=== PATIENT | female | born 1935 | race Caucasian/White ===

== ENCOUNTER 2025-08-14 13:44 | Emergency (ER) | payer OTHER, BC ==
[~2025-08-14] VITALS: Ht 157.5 cm; Wt 65.0 kg
[2025-08-14 13:52] VITALS: O2SAT 99
[2025-08-14 13:55] VITALS: TEMP 36.7; O2SAT 97
[2025-08-14] MEDS ORDERED: IBUPROFEN 800MG TABLET PO ONE (14:30)
[2025-08-14 15:20] LABS: BASOPHILS % 0.3 % (0.0-2.0); EOSINOPHILS % 0.9 % (0.0-5.0); HEMATOCRIT. 35.2 % (36.0-48.0); HEMOGLOBIN. 11.9 g/dL (12.0-16.0); LYMPHOCYTES % 8.7 % (20.0-50.0); MEAN PLATELET VOLUME 7.4 fl (7.4-10.4); MONOCYTES % 6.0 % (2.0-8.0); NEUTROPHILS % 84.1 % (40.0-76.0); PLATELET 258 x1000/uL (130-400); RED BLOOD CELL COUNT 3.83 mill/uL (4.2-5.4); RED CELL DISTRIBUTION WIDTH 13.5 % (11.6-14.6)
[2025-08-14 15:39] LABS: CREATININE 0.9 mg/dL (0.6-1.0); UREA NITROGEN BLOOD 15.0 mg/dL (9-23)
[2025-08-14 15:40] LABS: TROPONIN I HIGH SENSITIVITY < 4 ng/L (3.0-34)
[2025-08-14 16:28] VITALS: BP 156/72; PULSE 95; RESP 18
[2025-08-14] MEDS: IBUPROFEN 800MG TABLET PO NR (16:28)
[2025-08-14] MEDS ORDERED: IBUP-2030 MT (16:42)
== END 2025-08-14 17:25 | disposition home or self-care (01) ==
LOC: ER 14:31
DX: S20.219A Contusion of unspecified front wall of thorax, initial encounter (principal); E78.00 Pure hypercholesterolemia, unspecified; I11.9 Hypertensive heart disease without heart failure; I25.10 Atherosclerotic heart disease of native coronary artery without angina pectoris; V49.9XXA Car occupant (driver) (passenger) injured in unspecified traffic accident, initial encounter; Y92.410 Unspecified street and highway as the place of occurrence of the external cause; Y93.89 Activity, other specified; Y99.8 Other external cause status
CPT/HCPCS: 36415; 71045; 71250; 80048; 84484; 85025; 93005; 99285